=== PATIENT | female | born 1960 | race Caucasian/White ===

== ENCOUNTER 2018-07-18 13:03 | Day surgery (SDC) | payer OTHER ==
[~2018-07-18] VITALS: Ht 149.9 cm; Wt 98.1 kg
[~2018-07-18 13:03] MED LIST: Aspirin EC81 MG PO; Calcium Acetat667 MG; FISH1000 PO; LEVSOD50 PO; Multiple Vitam1 EAC1 PO
--- NOTE | 2018-07-18 15:07 | NUR ---
07/18/18 1507 [address] DISCHARGE INSTRUCTIONS REVIEWED WITH PATIENT, NO QUESTIONS AT THIS TIME. PATIENT VSS, NO COMPLAINTS AT THIS MOMENT. NURSE ASSISTED PATIENT EXIT TO THE LOBBY.
[2018-07-24] MEDS ORDERED: LEVSOD100 PO (14:35)
[2018-07-24] MEDS ORDERED: Advil200 M1 PO (14:36)
== END 2018-07-18 14:53 | disposition home or self-care (01) ==
LOC: ORSCSDS 13:03
PROVIDERS: Anesthesiology
PROC: 3E0R33Z Introduction of Anti-inflammatory into Spinal Canal, Percutaneous Approach (ICD-10-PCS; principal; 2018-07-18 14:15)
DX: M51.16 Intervertebral disc disorders with radiculopathy, lumbar region (principal); E66.01 Morbid (severe) obesity due to excess calories; Z68.41 Body mass index [BMI] 40.0-44.9, adult; Z79.82 Long term (current) use of aspirin; Z79.899 Other long term (current) drug therapy
CPT/HCPCS: J1040

== ENCOUNTER 2018-08-02 09:44 | Day surgery (SDC) | payer OTHER ==
[~2018-08-02] VITALS: Ht 149.9 cm; Wt 94.2 kg
[~2018-08-02 09:44] MED LIST changes: +Advil200 M1 PO; +LEVSOD100 PO
== END 2018-08-02 12:13 | disposition home or self-care (01) ==
LOC: ORSCSDS 09:44
PROVIDERS: Internal Medicine Gastroenterology
PROC: 0DBH8ZX Excision of Cecum, Via Natural or Artificial Opening Endoscopic, Diagnostic (ICD-10-PCS; principal; 2018-08-02 10:45)
PROC: 0DBM8ZX Excision of Descending Colon, Via Natural or Artificial Opening Endoscopic, Diagnostic (ICD-10-PCS; principal; 2018-08-02 10:45)
DX: K62.5 Hemorrhage of anus and rectum (principal); D12.0 Benign neoplasm of cecum; D12.4 Benign neoplasm of descending colon; K60.2 Anal fissure, unspecified; R10.9 Unspecified abdominal pain; Z86.010 Personal history of colon polyps; K57.30 Diverticulosis of large intestine without perforation or abscess without bleeding; R10.84 Generalized abdominal pain; Z68.41 Body mass index [BMI] 40.0-44.9, adult; Z87.891 Personal history of nicotine dependence; Z79.899 Other long term (current) drug therapy
CPT/HCPCS: 88305; J7120

== ENCOUNTER → 2021-08-31 | Outpatient (CLI) | payer OTHER | END | disposition home or self-care (01) | LOC: LAB SHORT 14:58 | DX: A49.9 Bacterial infection, unspecified (principal) | CPT/HCPCS: 87070; 87205 ==

== ENCOUNTER → 2021-11-17 | Outpatient (CLI) | payer OTHER | END | disposition home or self-care (01) | LOC: LAB SHORT 15:19 | DX: A49.9 Bacterial infection, unspecified (principal); L72.0 Epidermal cyst | CPT/HCPCS: 87070; 87205 ==

== ENCOUNTER → 2022-01-11 | Outpatient (CLI) | payer OTHER | END | disposition home or self-care (01) | LOC: LAB SHORT 13:44 → LAB 13:44 | DX: L70.0 Acne vulgaris (principal); A49.9 Bacterial infection, unspecified | CPT/HCPCS: 87070; 87205 ==

== ENCOUNTER → 2023-01-17 | Outpatient (CLI) | payer OTHER ==
[2023-01-18 11:21] LABS: Candida species (DNA Probe) Negative (NEGATIVE); G. vaginalis (DNA Probe) Negative (NEGATIVE); T. vaginalis (DNA Probe) Negative (NEGATIVE)
== END | disposition home or self-care (01) ==
LOC: LAB 17:46 → LAB SHORT 17:46
PROVIDERS: Family Medicine
DX: N89.8 Other specified noninflammatory disorders of vagina (principal)
CPT/HCPCS: 87070; 87205; 87480; 87510; 87660